=== PATIENT | male | born 1975 | race Caucasian/White ===

== ENCOUNTER 2017-01-11 23:35 | Emergency (ER) | payer SELFPAY ==
[~2017-01-11] VITALS: Ht 172.7 cm; Wt 75.0 kg
[2017-01-12] MEDS ORDERED: BACTRIM DS TAB1 EACH PO (00:27)
[2017-01-12] MEDS ORDERED: ULTRAM50 M1 PO (00:27)
[2017-01-12 00:36] VITALS: BP 115/59
== END 2017-01-12 00:36 | disposition home or self-care (01) ==
LOC: ED 23:35
DX: L02.412 Cutaneous abscess of left axilla (principal); L73.9 Follicular disorder, unspecified